=== PATIENT | female | born 1985 | race Caucasian/White ===

== ENCOUNTER → 2020-12-04 | Outpatient (CLI) | payer BC, OTHER ==
[2020-11-26 14:31] VITALS: BP 130/71
[~2020-12-04] VITALS: Ht 157.5 cm; Wt 97.5 kg
[~2020-12-04] MED LIST: LANS30CA PO; OXYC-325 PO; OXYC1TAB15 PO; PANT40TA77 PO; SERT50TA PO
--- NOTE | 2020-12-04 12:59 | RAD ---
HEPATOBILIARY SCAN History: abdomen pain, pancreatitis 1 week ago Procedure: Serial static images are obtained of the liver and biliary system in the frontal projectio n following IV administration of 5.5 mCi of Technetium 99m Choletec. Findings: There is prompt hepatic clearance of tracer from the blood pool. There is homogeneous distribution th roughout the liver. Tracer in the common bile duct is seen by 10 minutes. Tracer in small bowel is se en by 25 minutes. During the first 60 minutes tracer in the gallbladder is not identified. Moderate e nterogastric reflux is noted. Patient does not have time today for post morphine imaging due to work. Additionally there is minimal tracer left in the liver for post morphine imaging, a small dose reinjection of radiopharmaceutical would be necessary. Short-term repeat of the exam could be performed. IMPRESSION: 1. During initial 60 minutes of the study the gallbladder is not identified. Please see above discus carie. 2. There is moderate enterogastric reflux. Electronically signed by: Jigar Edouard MD (12/04/2020 12:56 PM) [id number]
== END ==
LOC: NM 10:44
PROVIDERS: ATTEND Internal Medicine Gastroenterology
DX: K21.9 Gastro-esophageal reflux disease without esophagitis (principal); R10.9 Unspecified abdominal pain; K85.90 Acute pancreatitis without necrosis or infection, unspecified
CPT/HCPCS: 78226; A9537; 96374

== ENCOUNTER → 2020-12-20 | Outpatient (CLI) | payer BC ==
[2020-11-26 14:31] VITALS: BP 130/71
== END ==
LOC: LAB 12:56
PROVIDERS: ATTEND Surgery
DX: Z01.812 Encounter for preprocedural laboratory examination (principal); K82.8 Other specified diseases of gallbladder; Z20.822 Contact with and (suspected) exposure to COVID-19
CPT/HCPCS: U0003; U0005

== ENCOUNTER 2020-12-25 11:27 | Day surgery (SDC) | payer BC ==
[~2020-12-25] VITALS: Ht 157.5 cm; Wt 99.5 kg
[~2020-12-25 11:27] MED LIST changes: +HYDROmorphone 2 MG/ML VIAL IVP PRN; +IV RINGERS,LACTATED 1000ML 1,000 ML IV SCH; -OXYC-325 PO; +PROCHLORPERAZINE 10 MG/2 ML VIAL. IVP PRN; +fentaNYL PF VIAL 100 MCG/2 ML VIAL IVP PRN
[2020-12-25] MEDS ORDERED: fentaNYL PF VIAL 100 MCG/2 ML VIAL ONE ×2 (11:51→12:45)
[2020-12-25] MEDS ORDERED: DEXAMETHASONE SOD PHOS 4 MG/ML VIAL ONE (11:51)
[2020-12-25] MEDS ORDERED: ONDANSETRON PF 4 MG/2 ML VIAL. ONE (11:51)
[2020-12-25] MEDS ORDERED: SUCCINYLCHOLINE 200 MG/10 ML VIAL. ONE (11:51)
[2020-12-25] MEDS ORDERED: LIDOCAINE 2% PF 5 ML VIAL. ONE (11:51)
[2020-12-25] MEDS ORDERED: PROPOFOL 10 MG/ML (20ML) VIAL. IV ONE (11:51)
[2020-12-25] MEDS ORDERED: ROCURONIUM 50 MG/5 ML VIAL. ONE (11:51)
[2020-12-25] MEDS ORDERED: MIDAZOLAM HCL/PF 2 MG/2 ML VIAL. ONE (11:52)
[2020-12-25] MEDS ORDERED: FAMOTIDINE 20 MG/2 ML VIAL ONE (12:30)
[2020-12-25] MEDS ORDERED: GLYCOPYRROLATE 1 MG/5 ML VIAL. ONE (12:36)
[2020-12-25] MEDS ORDERED: KETOROLAC 30 MG/ML VIAL. ONE (12:36)
[2020-12-25] MEDS ORDERED: NEOSTIGMINE METHYLSULFATE 5 MG/5 ML SYRINGE. ONE (12:36)
[2020-12-25] MEDS ORDERED: SEVOFLURANE 31 TO 60 MINUTES. IH ONE (12:46)
[2020-12-25] MEDS ORDERED: BUPIVACAINE-EPI 0.25% 30 ML VIAL KIT. ONE (13:52)
[2020-12-25] MEDS ORDERED: SURGICEL HEMOSTAT 4X8 EACH. ONE (13:52)
[2020-12-25] MEDS ORDERED: IOHEXOL 300 MG/ML 50 ML VIAL. ONE (13:52)
--- NOTE | 2020-12-25 14:50 | PDOC4 ---
Operative Note Operative Note Date: December 25, 2020 at 1448 Preoperative diagnosis: Chronic cholecystitis cholelithiasis Postoperative diagnosis: Same Procedure: Laparoscopic cholecystectomy Surgeon: Abebe Specimen: Gallbladder Dictation: Patient is 35-year-old female was recently hospitalized with gallstone pancreatitis. Procedure of laparoscopic cholecystectomy was explained to the patient detail risk benefits were also discussed including bleeding infection injury to intra-abdominal contents possibly necessitating further open operations alternatives to this procedure also discussed with the patient who seemed to understand and gave both verbal and written consent to have the procedure performed. Patient was taken to the operating room placed in the supine position general anesthesia was initiated once patient was sleeping intubated her abdomen was prepped and draped usual sterile fashion using ChloraPrep. Area just below the umbilicus was injected with quarter percent Ma rcaine with epinephrine incision was made 11 blade scalpel and a varies needle was placed within the abdomen creating pneumoperitoneum once this was complete the millimeter port was placed and a 5 mm camera's placed within the abdomen which was inspected no other abnormalities were noted. A 5 mm port was placed in the epigastrium a 5 mm port was placed in the right midabdomen and 5 mm port was placed in the right lateral abdomen all under direct visualization. The dome of the gallbladder is grasped retracted cephalad the infundibulum of the gallbladder is grasped retracted laterally exposing the triangle of adherent tissues of the triangle were taken down exposing the cystic duct and cystic artery both were doubly clipped and transected the gallbladder was taken off the liver with hook electrocautery placed in Endo Catch bag removed the umbilicus. Right upper quadrant is irrigated and suctioned dry hemostasis deemed be appropriate the pneumoperitoneum was reduced all ports removed the fascial defect at the umbilicus was closed with a [id number] 0 Vicryl suture and the skin was reapproximated all port sites for subcuticular Monocryl Mastisol Steri-Strips and island dressings were applied. Patient was awakened and extubated operating room taken to recovery in stable condition all sponge instrument needle counts listed as correct estimated blood loss 20 mL ALISA JOHNSON MD Dec 25, 2020 14:50
--- NOTE | 2020-12-25 14:51 | DISCH ---
DISCHARGE INSTRUCTIONS Condition on Discharge Condition on Discharge: Stable Activity After Discharge Activity Instructions for Disc: Activity as tolerated, Avoid exertion Other activity instructions: No lifting more than 20 pounds for 2 weeks Diet after Discharge Diet after Discharge: Low Fat Wound Incision Care Other wound/incision instructi: May shower in 24 hours Contacting the after DC Call your doctor for: If your condition worsens Follow-Up Follow up with: Dr. Johnson in 2 weeks ALISA JOHNSON MD Dec 25, 2020 14:51
[2020-12-25] MEDS ORDERED: PROCHLORPERAZINE 10 MG/2 ML VIAL. ONE (15:09)
[2020-12-25] MEDS ORDERED: OXYC-325 PO (15:23)
[2020-12-25] MEDS ORDERED: MORPHINE SULFATE 2 MG/ML VIAL. ONE (15:25)
[2020-12-25] MEDS: MORPHINE SULFATE 2 MG/ML VIAL. IVP PRN ×2 (15:29→15:40)
[2020-12-25] MEDS ORDERED: oxyCODONE/APAP 5/325 1 TAB TABLET PO ONE ×2 (15:30)
[2020-12-25 16:14] VITALS: BP 138/83
--- NOTE | 2021-01-01 21:34 | PATHOLOGY ---
[facility] Accession Number: [id number] . 01 Material submitted: . gallbladder - GALLBLADDER . 01 Clinical history: . BILIARY DYSKENSIA LAPAROSCOPIC CHOLECYSTECTOMY . 02 Diagnosis: Gallbladder, excision: - Cholesterolosis. - Minimal chronic cholecystitis. - Negative for malignancy. . Liver, biopsy: - Benign liver parenchyma with features of mildly active steatohepatitis without significant bridging fibrosis (stage 1/4). (MLK:pit; 12/28/2020) P 12/31/2020 1553 Local . 02 Electronically signed: . Jenny Mclaughlin MD, Pathologist NPI- [id number] . 01 Gross description: . The specimen is received in formalin, labeled "Sabi Munroe", "gallbladder". Received is an intact gallbladder measuring 6.3 x 2.7 x 2.1 cm. The external surface is smooth, shiny and pale yellow-green. A single possible pale castle lymph node is identified near the common bile duct measuring 0.6 centimeters. Opening the gallbladder reveals a velvety, pale yellow-green, bile-stained mucosa with multiple pale yellow raised streaks extending throughout. The gallbladder wall measures 0.2 cm in thickness. No calculi are identified within the gallbladder or container. Reefer Engineer sections are submitted in cassette A1.(SNA; 12/27/2020) JULIANA/ROSELIA 12/27/2020 0850 Local . 02 Pathologist provided ICD-10: K81.1, K82.4, K75.81, K74.00 . 02 CPT . 790440 Specimen Comment: A courtesy copy of this report has been sent to [phone] Specimen Comment: [id number] Specimen Comment: Report sent to DR JOHNSON / DR VELAZQUEZ Performed at: 01 [facility] [address], [place], [place] [id number] MD Geremias Davis MD Phone: [phone] Performed at: 02 [facility] [address] [place], [place] [id number] MD Jovan Zelaya MD Phone: [phone]
== END 2020-12-25 16:50 | disposition home or self-care (01) ==
LOC: SURG 11:27
PROVIDERS: ATTEND Surgery
DX: K80.10 Calculus of gallbladder with chronic cholecystitis without obstruction (principal); K75.81 Nonalcoholic steatohepatitis (NASH); K74.00 Hepatic fibrosis, unspecified; K21.9 Gastro-esophageal reflux disease without esophagitis; F41.9 Anxiety disorder, unspecified; F32.9 Major depressive disorder, single episode, unspecified; F17.210 Nicotine dependence, cigarettes, uncomplicated; Z72.89 Other problems related to lifestyle; Z79.899 Other long term (current) drug therapy; Z98.890 Other specified postprocedural states
CPT/HCPCS: 47562; 81025; A4364; A4930; A6219; J0330; J0690; J0780; J1100; J1885; J2270; J2405; J2704; J2710; J3010; J3490; A4452; A4657; J2250; Q9967